=== PATIENT | female | born 1960 | race Caucasian/White ===

== ENCOUNTER 2017-09-09 15:05 | Emergency (ER) | payer OTHER ==
--- NOTE | 2017-09-09 16:32 | ED ---
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 Patient also states her blood pressure is higher than her baseline over the past couple days. Patient is involved in physical therapy for CVA residual symptoms, denies change in strength levels of bilateral upper extremities or in bilateral lower extremities. Also denies facial droop, slurred speech, vision change, MITCHELL, focal weakness, fever, cough, sore throat, N/V/D, CP, SOB, abdominal pain, change in urine or BM. Medical history is HTN, HDL. No anti-coag. Patient currently taking baby aspirin. - History of Current Complaint Chief Complaint: EDNeurologicalDeficit Stated Complaint: LT SIDE NUMBNESS/MEMORY LOSS Time Seen by Provider: 09/09/17 16:25 Hx Obtained From: Patient, Family/Psychiatric Nursing Aide Onset/Duration: Gradual Onset, Started days ago Timing: Intermittent Episodes Lasting: Onset Severity: Mild Current Severity: Mild Neurological Deficit Location: LUE, LLE Pain Intensity: 0 Pain Scale Used: 0-10 Numeric Character: Dizzy - Allergy/Home Medications Allergies/Adverse Reactions: Allergies Allergy/AdvReac Type Severity Reaction Status Date / Time No Known Allergies Allergy Verified 09/09/17 15:13 PMH/Surg Hx/FS Hx/Imm Hx Endocrine/Hematology History: Denies: Hx Diabetes Cardiovascular History: Reports: Hx Hypertension Denies: Hx Pacemaker/ICD History: Denies: Hx Renal Disease Sensory History: Denies: Hx Hearing Aid Neurological History: Reports: Hx CVA Psychiatric History: Denies: Hx Panic Disorder - Surgical History Surgery Procedure, Year, and Place: LUMPECTOMY RIGHT BREAST Infectious Disease History: No Infectious Disease History: Denies: Traveled Outside the [place] in Last 30 Days - Social History Alcohol Use: None Substance Use Type: Reports: None Smoking Status (MU): Never Smoked Tobacco Review of Systems Positive: Fatigue Eyes: Negative ENT: Negative Cardiovascular: Negative Respiratory: Negative Gastrointestinal: Negative Genitourinary: Negative Musculoskeletal: Negative Skin: Negative Positive: Numbness Psychological: Normal All Other Systems Reviewed And Are Negative: Yes Physical Exam - Summary Physical Exam Summary: Neuro exam normal. Patient alert and oriented. No evidence of facial droop, slurred speech, trouble finding words, focal deficits. Strength of continuous towel roller, push and pull equal bilaterally. Triage Information Reviewed: Yes Vital Signs On Initial Exam: Initial Vitals Temp Pulse Resp BP Pulse Ox 97.5 F 95 20 138/99 98 09/09/17 15:10 09/09/17 15:10 09/09/17 15:10 09/09/17 15:10 09/09/17 15:10 Vital Signs Reviewed: Yes Appearance: Positive: Well-Appearing Skin: Positive: Warm Head/Face: Positive: Normal Head/Face Inspection Eyes: Positive: Normal Neck: Positive: Supple Respiratory/Lung Sounds: Positive: Clear to Auscultation Cardiovascular: Positive: Normal Abdomen Description: Positive: Nontender Musculoskeletal: Positive: Normal Neurological: Positive: Normal Psychiatric: Positive: Normal AVPU Assessment: Alert - [place] Coma Scale Best Eye Response: 4 - Spontaneous Best Motor Response: 6 - Obeys Commands Best Verbal Response: 5 - Oriented Coma Scale Total: 15 Diagnostics - Vital Signs Vital Signs Temp Pulse Resp BP Pulse Ox 09/09/17 16:00 76 25 97 09/09/17 15:32 80 15 98 09/09/17 15:10 97.5 F 95 20 138/99 98 - Laboratory Result Diagrams: 09/09/17 16:33 09/09/17 16:33 Lab Statement: Any lab studies that have been ordered have been reviewed, and results considered in the medical decision making process. - CT brain CT Interpretation: No Acute Changes CT Interpretation Completed By: Radiologist Course/Dx - Course Course Of Treatment: Patient with history of CVA last November with residual left -sided N/T and stiffness from left shoulder down to left foot, occasional trouble finding words, and occasional episodes of imbalance complains of increase in these symptoms for the past 2 days with new onset fatigue and one short episode of sudden onset dizziness lasting about 10 seconds. Patient also states her blood pressure is higher than her baseline over the past couple days. Patient is involved in physical therapy for CVA residual symptoms, denies change in strength levels of bilateral upper extremities or in bilateral lower extremities. Also denies facial droop, slurred speech, vision change, MITCHELL , focal weakness, fever, cough, sore throat, N/V/D, CP, SOB, abdominal pain, change in urine or BM. Medical history is HTN, HDL, hypothyroid. No anti- coag. Patient currently taking baby aspirin. CT brain negative. Vital signs within normal limits and stable. TSH .09. Discussed patient with Dr. Malone who recommends patient follow up with Neurologist Dr Dozier, obtain outpatient MRI, echocardiogram, carotid ultrasound, decrease levothyroxine from 75 mcg to 50mcg daily, and inc daily enteric coated asa from 81 to 324mg daily. - Diagnoses Provider Diagnoses: Paresthesia and pain of left extremity Discharge - Sign-Out/Discharge Documenting (check all that apply): Patient Departure - Discharge Plan Condition: Good Disposition: HOME Patient Education Materials: Transient Ischemic Attack (ED) Referrals: Virgilio Gonsalez MD [Primary Care Provider] - Additional Instructions: Follow up with Neurologist Dr Dozier, obtain outpatient MRI, echocardiogram, carotid ultrasound, decrease levothyroxine from 75 mcg to 50mcg daily, and increase daily enteric coated aspirin from 81 to 324mg daily. Return to the ED for any new or worsening symptoms - Billing Disposition and Condition Condition: GOOD Disposition: Home
[2017-09-09 16:43] LABS: ABS Basophils 0.1 10^3/ul (0-0.2); ABS Eosinophils 0.1 10^3/ul (0-0.6); ABS Lymphocytes 2.5 10^3/ul (1.0-4.8); ABS Monocytes 0.4 10^3/ul (0-0.8); ABS Neutrophils 3.6 10^3/ul (1.5-7.7); ABS Nucleated RBC 0 10^3/ul; Hematocrit 38 % (35-47); Hemoglobin 13.1 g/dl (12.0-16.0); Lymphocyte % 37.6 % (25-47); Mean Corpuscular HGB Conc 35 g/dl (31-36); Mean Corpuscular Hemoglobin 30 pg (27-31); Mean Corpuscular Volume 87 fL (80-97); Nucleated Red Blood Cells % 0; Platelet Count 297 10^3/ul (150-450); Red Blood Count 4.34 10^6/ul (4.00-5.40); Red Cell Distribution Width 13 % (10.5-15); White Blood Count 6.8 10^3/ul (3.5-10.8)
[2017-09-09 17:01] LABS: EGFR Non-African American 78.1 (>60)
--- NOTE | 2017-09-09 17:36 | RAD ---
INDICATION: Left-sided numbness and tingling, worse finding, dizziness and fatigue. Relevant history includes a left-sided stroke in November 2016. COMPARISON: MRI of the brain July 06, 2017 TECHNIQUE: Contiguous axial sections of the brain were obtained from the skull base to the vertex without contrast. Coronal and sagittal reformats were created and independently reviewed. FINDINGS: The ventricles, cisterns and sulci are within normal limits. At the junction of the right frontal and temporal lobes there is the appearance of a 1.7 cm cortical lesion (image 18). By examining reformats in the coronal and sagittal planes (for example coronal image 33/59), but appears to be a lesion may only be volume averaging. Elsewhere the edge-white matter differentiation is adequately maintained and there is no sulcal effacement. No significant focal abnormality or mass effect is present. There is no evidence for intracranial hemorrhage. No significant focal osseous abnormality is present. The visualized portion of the paranasal sinuses appear clear. The mastoid air cells are well aerated bilaterally. IMPRESSION: At the junction of the right frontal and parietal lobe cortices there is the appearance of a low-attenuation lesion on the axial plane. But review of coronal and sagittal reformats indicate this is simply volume averaging. If the patient is demonstrating focal neurologic deficits superior characterization can be made with MRI of the brain.
[2017-09-09 18:39] LABS: Urine Appearance Clear; Urine Blood Negative (Negative); Urine Color Straw; Urine Ketones Negative (Negative); Urine Protein Negative (Negative); Urine Red Blood Cell Trace(0-2/hpf) (Absent); Urine Specific Gravity 1.005 (1.010-1.030); Urine Urobilinogen Negative (Negative); Urine White Blood Cell Trace(0-5/hpf) (Absent)
[2017-09-09] MEDS ORDERED: Dexamethasone IV* 4 MG/ML 1 ML (4 MG) IM ONE (18:42)
--- NOTE | 2017-09-09 18:48 | ED ---
Progress - Progress Note Progress Note: I supervised the care of the physician contact lens assistant and I performed a history and physical on this patient. 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 This seems to be persistent or worsened. Symptoms since November. On baby aspirin only. Physical exam: Patient with NIH stroke score of 0. No distress. Plan: No previous stroke workup other than MRI. On baby aspirin. We will increase to 325 mg daily enteric coated aspirin. Recommend outpatient MRI, echocardiogram and carotid ultrasound. Evaluate for PFO. Doesn't appear to have any acute symptom but rather symptoms in the same distribution of prior. Possible residual unlikely new event. Follow-up with Dr. Dozier from neurology. Course/Dx - Course Course Of Treatment: Patient with history of CVA last November with residual left -sided N/T and stiffness from left shoulder down to left foot, occasional trouble finding words, and occasional episodes of imbalance complains of increase in these symptoms for the past 2 days with new onset fatigue and one short episode of sudden onset dizziness lasting about 10 seconds. Patient also states her blood pressure is higher than her baseline over the past couple days. Patient is involved in physical therapy for CVA residual symptoms, denies change in strength levels of bilateral upper extremities or in bilateral lower extremities. Also denies facial droop, slurred speech, vision change, MITCHELL , focal weakness, fever, cough, sore throat, N/V/D, CP, SOB, abdominal pain, change in urine or BM. Medical history is HTN, HDL. No anti-coag. Patient currently taking baby aspirin. - Diagnoses Provider Diagnoses: Paresthesia and pain of left extremity Discharge - Sign-Out/Discharge Documenting (check all that apply): Patient Departure - Discharge Plan Condition: Good Disposition: HOME Referrals: Virgilio Gonsalez MD [Primary Care Provider] - - Billing Disposition and Condition Condition: GOOD Disposition: Home
[2017-09-09] MEDS ORDERED: Aspirin EC TAB* 325 MG PO ONE (18:57)
[2017-09-09] MEDS ORDERED: Aspirin 81 mg CHEW TAB* 81 MG TAB.CHEW ONE (19:20)
[2017-09-09] MEDS ORDERED: Aspirin EC TAB* 81 MG TAB.EC PO ONE (19:23)
[2017-09-09] MEDS ORDERED: Aspirin EC TAB* 81 MG TAB.EC ONE (19:24)
[2017-09-09 19:34] VITALS: BP 137/101
--- NOTE | 2017-09-11 09:27 | ED ---
Progress - Progress Note Progress Note: I supervised the care of the physician assistant head cashier and I performed a history and physical on this patient. 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 This seems to be persistent or worsened. Symptoms since November. On baby aspirin only. Physical exam: Patient with NIH stroke score of 0. No distress. Plan: No previous stroke workup other than MRI. On baby aspirin. We will increase to 325 mg daily enteric coated aspirin. Recommend outpatient MRI, echocardiogram and carotid ultrasound. Evaluate for PFO. Doesn't appear to have any acute symptom but rather symptoms in the same distribution of prior. Possible residual unlikely new event. Follow-up with Dr. Dozier from neurology. UPDATE: Patient's final urine culture reveals 10-25,000 strep group B. Due to this low count, a phone call was made to patient to follow-up on symptoms. She denies any urinary urgency, frequency, pelvic or abdominal pain, vaginal itching /irritation/discharge. She also denies fevers or chills. She reports she's feeling fine since her visit here and has a follow-up appointment scheduled with Dr. Dozier. Explained that her urine culture findings are most likely a contaminant from colonized vaginal mark however if she develops symptoms previously mentioned, she may follow-up with her PCP Dr. Alarcon. Patient agrees with plan. SHIV PEREZ 09/11/2017 9:27am Course/Dx - Course Course Of Treatment: Patient with history of CVA last November with residual left -sided N/T and stiffness from left shoulder down to left foot, occasional trouble finding words, and occasional episodes of imbalance complains of increase in these symptoms for the past 2 days with new onset fatigue and one short episode of sudden onset dizziness lasting about 10 seconds. Patient also states her blood pressure is higher than her baseline over the past couple days. Patient is involved in physical therapy for CVA residual symptoms, denies change in strength levels of bilateral upper extremities or in bilateral lower extremities. Also denies facial droop, slurred speech, vision change, MITCHELL , focal weakness, fever, cough, sore throat, N/V/D, CP, SOB, abdominal pain, change in urine or BM. Medical history is HTN, HDL, hypothyroid. No anti- coag. Patient currently taking baby aspirin. CT brain negative. Vital signs within normal limits and stable. TSH .09. Discussed patient with Dr. Malone who recommends patient follow up with Neurologist Dr Dozier, obtain outpatient MRI, echocardiogram, carotid ultrasound, decrease levothyroxine from 75 mcg to 50mcg daily, and inc daily enteric coated asa from 81 to 324mg daily. - Diagnoses Provider Diagnoses: Paresthesia and pain of left extremity Discharge - Sign-Out/Discharge Documenting (check all that apply): Post-Discharge Follow Up - Discharge Plan Condition: Good Disposition: HOME Patient Education Materials: Transient Ischemic Attack (ED) Referrals: Virgilio Gonsalez MD [Primary Care Provider] - Additional Instructions: Follow up with Neurologist Dr Dozier, obtain outpatient MRI, echocardiogram, carotid ultrasound, decrease levothyroxine from 75 mcg to 50mcg daily, and increase daily enteric coated aspirin from 81 to 324mg daily. Return to the ED for any new or worsening symptoms - Billing Disposition and Condition Condition: GOOD Disposition: Home
== END 2017-09-09 19:32 | disposition home or self-care (01) ==
LOC: ED 15:05
DX: R20.2 Paresthesia of skin (principal); I69.354 Hemiplegia and hemiparesis following cerebral infarction affecting left non-dominant side; R53.83 Other fatigue; M25.612 Stiffness of left shoulder, not elsewhere classified; M25.675 Stiffness of left foot, not elsewhere classified; M79.609 Pain in unspecified limb; I10 Essential (primary) hypertension; E03.9 Hypothyroidism, unspecified; Z79.82 Long term (current) use of aspirin
CPT/HCPCS: 36415; 70450; 80053; 81003; 81015; 83605; 84443; 85025; 86140; 87077; 87086; 99282; A9270-GY